=== PATIENT | male | born 1965 | race African-American/Black ===

== ENCOUNTER 2019-11-08 15:25 | Inpatient (IN) | payer OTHER ==
--- NOTE | 2019-11-08 14:51 | HP ---
[facility] Rehab Assess/Revision - Admission History Admitted to Rehab from: [facility] [address] [facility] Date of Admission to Rehab: 11/08/19 - Findings Detox History & Physical reviewed: Yes Concur with findings: Yes Comments/Additional Findings: trasnferred from detox to rehab admission as per protocol Inpatient Rehab Admission - Rehab Decision to Admit Inpatient rehab admission?: Yes - Initial Determination Are CD services needed?: Yes Free of communicable disease: Yes Not in need of hospitalization: Yes - Rehab Admission Criteria Previous failed treatment: Yes Poor recovery environment: Yes Comorbidities: Yes Lacks judgement: Yes Patient is meeting Inpatient Rehab admission criteria:: Yes
[~2019-11-08 15:25] MED LIST: ACETAMINOPHEN 325 MG TABLET (FP) PO PRN; LOPERAMIDE HCL 2 MG CAPSULE PO PRN; MAG HYDROX/AL HYDROX/SIMETH 30 ML UNIT-DOSE CUP PO PRN; MAGNESIUM CITRATE 300 ML BOTTLE PO PRN; MAGNESIUM HYDROX 2400MG/30ML ORAL SUSPENSION 30 ML CUP PO PRN; P-EPHED 60MG/TRIPROLIDI 2.5MG TABLET PO PRN; cloNIDine HCL 0.1 MG TABLET PO PRN; guaiFENesin 200 MG/10 ML 10 ML UNIT-DOSE CUPS PO PRN
--- NOTE | 2019-11-08 15:41 | PN ---
[facility] Progress Note Note: Pt is a 54 y/o male admitted to rehab from [address] [place] [address]. Saw Pt on the unit who was using cane for ambulation and has a hx of limited musculoskelatal ambulatory function. Difficulty getting up from sitting position and struggles to do so with support of his cane. Pt reports he has primary care(unable to remember his primary care doctor's name) with [facility], [address], [place]. . Pt reports he was on Methadone Maintenance till about 2 months ago when Covid-19 pandemic started and he did not go back to the clinic at [facility], [place]. . Pt reports was on Pain management at his primary care location. PMHx:Arthritis-Left and Right knees;Left Hip Chronic Pain Vascular Insufficiency:Chronic Bilateral Lower Extremity Dark discoloration of skin with varicose veins. Flatfooted Feet Edema GERD Psych Hx:Depression Alert o x 3 nad Ambulating with unsteady gait with cane neck:supple extremities:Darkened skin on both lower extremities Left > right);flatfoot; Left ankle/feet larger than right. Non-tender. New rehab pt Maintain safety cont rehab Give Lasix 20 mg po daily Analgesic balm as directed elevate legs while in bed lidocaine patch to lower bacK D/w pt the need to follow up with his primary care clinic for comprehensive medical care management after discharge.
[2019-11-08] MEDS: LIDOCAINE 5% TOPICAL PATCH TP SCH (17:30)
[2019-11-08] MEDS: MELATONIN 5 MG TABLETS PO SCH (21:23)
[2019-11-08] MEDS: IBUPROFEN 400 MG TABLET (FP) PO PRN (21:23)
[2019-11-08] MEDS: hydrOXYzine PAMOATE 50 MG CAPSULE (FP) PO PRN (21:24)
[2019-11-08] MEDS: METHOCARBAMOL 500 MG TABLET PO PRN (21:24)
[2019-11-08] MEDS: THIAMINE HCL 100 MG TABLET (FP) PO SCH (21:24)
[2019-11-08] MEDS ORDERED: MASKS NR ONE (22:11)
[2019-11-08] MEDS: LIDOCAINE PATCH REMOVAL MC SCH (22:18)
[2019-11-09] MEDS: LIDOCAINE 5% TOPICAL PATCH TP SCH (09:39)
[2019-11-09] MEDS: NICOTINE 21 MG/24 HOURS TOPICAL PATCH TD SCH (09:39)
[2019-11-09] MEDS: PRENATAL VITAMINS W/ FOLIC ACID TABLET (FP) PO SCH (09:40)
[2019-11-09] MEDS: FAMOTIDINE 20 MG TABLET PO SCH ×2 (09:40→21:41)
[2019-11-09] MEDS ORDERED: amLODIPine BESYLATE 5 MG TABLET (FP) PO SCH (10:00)
[2019-11-09] MEDS: FERROUS SO4 325 MG TABLET (FP) PO SCH ×2 (11:34→17:30)
[2019-11-09] MEDS: FUROSEMIDE 20 MG TABLET (FP) PO SCH (11:34)
[2019-11-09] MEDS ORDERED: FLU VACCINE QUAD 60 MCG/0.5 ML (MDV 19-20) IM ONE (12:00)
--- NOTE | 2019-11-09 13:07 | CONSULT ---
[facility] Psychiatric Consult - Data Date of interview: 11/09/19 Admission source: Transfer from [address] [place] [address]. Identifying data: First admission to [address] for this 54 y/o AA male who completed detoxification at [address] [place] [address] and sought continuity of care in rehabilitation for maintenance of sobriety + management of co-morbid issues of MDD and Anxiety Disorder. Patient is single, no dependents, domiciled, unemployed and supported on Public Assistance. Substance Abuse History: Discussed in this session. GWEN profile as follows : Smoking history: Current every day smoker. Have you smoked in the past 12 months: Yes. Aproximately how many cigarettes per day: 20. Cigars Per Day: 0. Hx Chewing Tobacco Use: No. Initiated information on smoking cessation: Yes. 'Breaking Loose' booklet given: 11/07/19. - Substance & Tx. History. Hx Alcohol Use: No. Hx Substance Use: Yes. Substance Use Type: Cocaine, Heroin, Marijuana, Opiates. Hx Substance Use Treatment: No (detox, rehab, past MMTP). - Substances abused. Heroin. Substance route: Inhalation. Frequency: Daily. Amount used: 1 BAG. Age of first use: 48. Date of last use: 11/06/19. Crack. Substance route: Smoking. Frequency: Daily. Amount used: 2gm. Age of first use: 25. Date of last use: 11/06/19. Marijuana/Hashish. Substance route: Smoking. Frequency: 1-2 times per week. Amount used: 1 blunt. Age of first use: 20. Date of last use: 11/06/19 Medical History: Medical profile is remarkable for obesity, GERD, bilateral hip/leg/knee pain and varicose veins in left leg (stent in place). Patient ambulates with a cane. Psychiatric History: Patient denies history of psychiatric hospitalizations. He reports monthly contact with a mental health care provider at a " clinic located on [facility] " in the [place]. Mr Jung endorses the diagnoses of MDD and Anxiety Disorder. He is reportedly prescribed a combination of hydroxyzine + bupropion (dose not recalled by patient). Questionable adherence to medications. Patient denies history of suicide attempts. Physical/Sexual Abuse/Trauma History: Patient denies. Additional Comment: Toxicoloy positive for fentanyl, cocaine, cannabinoids on admission to [facility]. Mental Status Exam - Mental Status Exam Alert and Oriented to: Time, Place, Person Cognitive Function: Good Patient Appearance: Well Groomed (obese) Mood: Anxious, Hopeful Affect: Mood Congruent, Constricted Patient Behavior: Fatigued, Appropriate, Cooperative Speech Pattern: Clear, Appropriate Voice Loudness: Normal Thought Process: Intact, Goal Oriented Thought Disorder: Not Present Hallucinations: Denies Suicidal Ideation: Denies Homicidal Ideation: Denies Insight/Judgement: Fair Sleep: Poorly, Difficulty falling asleep Appetite: Good Gait/Station: Other (walks with a cane) Psychiatric Findings - Problem List ([place] 1, 2,3) (1) Opioid use disorder Current Visit: Yes Status: Chronic (2) Cannabis dependence Current Visit: Yes Status: Chronic (3) Cocaine dependence Current Visit: Yes Status: Chronic (4) Nicotine dependence Current Visit: Yes Status: Chronic (5) Substance induced mood disorder Current Visit: Yes Status: Chronic (6) History of depression Current Visit: Yes Status: Chronic (7) Insomnia Current Visit: Yes Status: Chronic - Initial Treatment Plan Initial Treatment Plan: Psychoeducation. Sleep hygiene. Support. Motivational counseling. NA meetings (in accordance with current Covid-19 guidelines : social distancing, hand washing, face mask). Recreational therapy. Patient requests to be back on bupropion and he agrees to a trial of trazodone for insomnia. Side effects/benefits of both drugs are discussed with the patient. Informed consent (verbal) granted to . Intervention : wellbutrin XL 150 mg po daily + trazodone 50 mg po hs. Observation.
--- NOTE | 2019-11-09 13:51 | PN ---
S Progress Note Note: Pt c/o "foot pain and black spots" on his lower extremities. Request for bed change. Vital Signs - 24 hr 11/08/19 11/09/19 11/09/19 20:44 03:30 06:55 Temperature 98.1 F Pulse Rate 56 L Respiratory 18 18 Rate Blood Pressure 144/92 O2 Sat by Pulse 96 96 Oximetry (%) 11/09/19 11/09/19 09:38 10:35 Temperature 98.0 F 98.0 F Pulse Rate 58 L 60 Respiratory 18 18 Rate Blood Pressure 151/91 136/80 O2 Sat by Pulse Oximetry (%) Alert o x 3 nad oob ambulating with cane,unsteady gait. LE:Extensive areas of Dark skin discoloration on both LE-mid-calf areas to feet. Some varicose veins. Both feet-flatfooted. Left foot/ankle slight>right. Non-pitting edema. lasix 20 mg po daily elevate both legs while in bed Change current bed to hospital bed to enable ease of movement. psych consult today.
[2019-11-09] MEDS: MELATONIN 5 MG TABLETS PO SCH (21:37)
[2019-11-09] MEDS: IBUPROFEN 400 MG TABLET (FP) PO PRN (21:40)
[2019-11-09] MEDS: METHYL SALICYLATE/MENTHOL OINT 30 GM TUBE TP SCH (21:40)
[2019-11-09] MEDS: METHOCARBAMOL 500 MG TABLET PO PRN (21:41)
[2019-11-09] MEDS: THIAMINE HCL 100 MG TABLET (FP) PO SCH (21:41)
[2019-11-09] MEDS: hydrOXYzine PAMOATE 50 MG CAPSULE (FP) PO PRN (21:41)
[2019-11-09] MEDS: DOCUSATE SODIUM 100 MG CAPSULE (FP) PO SCH (21:43)
[2019-11-09] MEDS: LIDOCAINE PATCH REMOVAL MC SCH (21:43)
[2019-11-09] MEDS: traZODone HCL 50 MG TABLET (FP) PO SCH (21:45)
[2019-11-10] MEDS: FERROUS SO4 325 MG TABLET (FP) PO SCH ×3 (08:31→17:53)
[2019-11-10] MEDS: NICOTINE 21 MG/24 HOURS TOPICAL PATCH TD SCH (10:06)
[2019-11-10] MEDS: LIDOCAINE 5% TOPICAL PATCH TP SCH (10:07)
[2019-11-10] MEDS: PRENATAL VITAMINS W/ FOLIC ACID TABLET (FP) PO SCH (10:08)
[2019-11-10] MEDS: FUROSEMIDE 20 MG TABLET (FP) PO SCH (10:08)
[2019-11-10] MEDS: FAMOTIDINE 20 MG TABLET PO SCH ×2 (10:09→21:28)
[2019-11-10] MEDS: METHOCARBAMOL 500 MG TABLET PO PRN (10:09)
[2019-11-10] MEDS: DOCUSATE SODIUM 100 MG CAPSULE (FP) PO SCH (21:27)
[2019-11-10] MEDS: MELATONIN 5 MG TABLETS PO SCH (21:28)
[2019-11-10] MEDS: traZODone HCL 50 MG TABLET (FP) PO SCH (21:28)
[2019-11-10] MEDS: METHYL SALICYLATE/MENTHOL OINT 30 GM TUBE TP SCH (21:28)
[2019-11-10] MEDS: THIAMINE HCL 100 MG TABLET (FP) PO SCH (21:28)
[2019-11-10] MEDS: LIDOCAINE PATCH REMOVAL MC SCH (21:30)
[2019-11-11] MEDS: FERROUS SO4 325 MG TABLET (FP) PO SCH ×3 (08:46→16:44)
[2019-11-11] MEDS: IBUPROFEN 400 MG TABLET (FP) PO PRN (08:47)
[2019-11-11] MEDS: METHOCARBAMOL 500 MG TABLET PO PRN (08:47)
[2019-11-11] MEDS: LIDOCAINE 5% TOPICAL PATCH TP SCH (10:10)
[2019-11-11] MEDS: NICOTINE 21 MG/24 HOURS TOPICAL PATCH TD SCH (10:10)
[2019-11-11] MEDS: FUROSEMIDE 20 MG TABLET (FP) PO SCH (10:10)
[2019-11-11] MEDS: PRENATAL VITAMINS W/ FOLIC ACID TABLET (FP) PO SCH (10:10)
[2019-11-11] MEDS: FAMOTIDINE 20 MG TABLET PO SCH ×2 (10:11→21:38)
[2019-11-11] MEDS: METHYL SALICYLATE/MENTHOL OINT 30 GM TUBE TP SCH (21:37)
[2019-11-11] MEDS: traZODone HCL 50 MG TABLET (FP) PO SCH (21:38)
[2019-11-11] MEDS: DOCUSATE SODIUM 100 MG CAPSULE (FP) PO SCH (21:38)
[2019-11-11] MEDS: LIDOCAINE PATCH REMOVAL MC SCH (21:38)
[2019-11-11] MEDS: MELATONIN 5 MG TABLETS PO SCH (21:38)
[2019-11-11] MEDS: THIAMINE HCL 100 MG TABLET (FP) PO SCH (21:38)
[2019-11-12] MEDS: FERROUS SO4 325 MG TABLET (FP) PO SCH ×3 (07:55→17:55)
[2019-11-12] MEDS: FAMOTIDINE 20 MG TABLET PO SCH ×2 (10:03→21:42)
[2019-11-12] MEDS: PRENATAL VITAMINS W/ FOLIC ACID TABLET (FP) PO SCH (10:03)
[2019-11-12] MEDS: LIDOCAINE 5% TOPICAL PATCH TP SCH (10:04)
[2019-11-12] MEDS: NICOTINE 21 MG/24 HOURS TOPICAL PATCH TD SCH (10:04)
[2019-11-12] MEDS: FUROSEMIDE 20 MG TABLET (FP) PO SCH (10:04)
--- NOTE | 2019-11-12 14:28 | PN ---
S Progress Note Note: Re-evaluated pt this morning re:leg pain/feet swelling and Pt reports he feels much better today. Vital Signs - 24 hr 11/11/19 11/11/19 11/12/19 14:38 19:22 00:30 Temperature 97.5 F L Pulse Rate 72 Respiratory 18 18 Rate Blood Pressure 127/91 O2 Sat by Pulse 98 97 Oximetry (%) 11/12/19 11/12/19 11/12/19 03:30 07:05 10:00 Temperature 97.8 F Pulse Rate 61 74 Respiratory 18 18 Rate Blood Pressure 153/85 148/88 O2 Sat by Pulse 95 Oximetry (%) Alert o x 3 nad oob ambulating with steady gait Lower extremities:decreased swelling non-pitting -compared to 3 days ago. Left outer sole with old healing blister;dry, no drainage. A:Hx Vascular Insufficiency P:Cont Lasix as directed. Bacitracin ointment apply to affected area on left out foot.
[2019-11-12] MEDS: METHYL SALICYLATE/MENTHOL OINT 30 GM TUBE TP SCH (21:41)
[2019-11-12] MEDS: hydrOXYzine PAMOATE 50 MG CAPSULE (FP) PO PRN (21:41)
[2019-11-12] MEDS: DOCUSATE SODIUM 100 MG CAPSULE (FP) PO SCH (21:41)
[2019-11-12] MEDS: METHOCARBAMOL 500 MG TABLET PO PRN (21:42)
[2019-11-12] MEDS: traZODone HCL 50 MG TABLET (FP) PO SCH (21:42)
[2019-11-12] MEDS: LIDOCAINE PATCH REMOVAL MC SCH (21:42)
[2019-11-12] MEDS: MELATONIN 5 MG TABLETS PO SCH (21:42)
[2019-11-12] MEDS: THIAMINE HCL 100 MG TABLET (FP) PO SCH (21:42)
[2019-11-13] MEDS: FERROUS SO4 325 MG TABLET (FP) PO SCH ×3 (08:50→17:53)
[2019-11-13] MEDS: FAMOTIDINE 20 MG TABLET PO SCH ×2 (10:34→21:30)
[2019-11-13] MEDS: PRENATAL VITAMINS W/ FOLIC ACID TABLET (FP) PO SCH (10:34)
[2019-11-13] MEDS: FUROSEMIDE 20 MG TABLET (FP) PO SCH (10:34)
[2019-11-13] MEDS: LIDOCAINE 5% TOPICAL PATCH TP SCH (10:35)
[2019-11-13] MEDS: NICOTINE 21 MG/24 HOURS TOPICAL PATCH TD SCH (10:35)
[2019-11-13] MEDS: NICOTINE POLACRILEX 2 MG GUM BUC PRN (13:49)
[2019-11-13] MEDS: METHYL SALICYLATE/MENTHOL OINT 30 GM TUBE TP SCH (21:29)
[2019-11-13] MEDS: THIAMINE HCL 100 MG TABLET (FP) PO SCH (21:30)
[2019-11-13] MEDS: DOCUSATE SODIUM 100 MG CAPSULE (FP) PO SCH (21:30)
[2019-11-13] MEDS: MELATONIN 5 MG TABLETS PO SCH (21:30)
[2019-11-13] MEDS: hydrOXYzine PAMOATE 50 MG CAPSULE (FP) PO PRN (21:30)
[2019-11-13] MEDS: traZODone HCL 50 MG TABLET (FP) PO SCH (21:30)
[2019-11-13] MEDS: METHOCARBAMOL 500 MG TABLET PO PRN (21:30)
[2019-11-13] MEDS: LIDOCAINE PATCH REMOVAL MC SCH (21:31)
[2019-11-14] MEDS: FAMOTIDINE 20 MG TABLET PO SCH ×2 (09:24→21:31)
[2019-11-14] MEDS: NICOTINE 21 MG/24 HOURS TOPICAL PATCH TD SCH (09:25)
[2019-11-14] MEDS: BACITRACIN 0.9 GM PACKET TP SCH ×2 (09:25→21:30)
[2019-11-14] MEDS: FUROSEMIDE 20 MG TABLET (FP) PO SCH (09:25)
[2019-11-14] MEDS: FERROUS SO4 325 MG TABLET (FP) PO SCH ×3 (09:25→17:07)
[2019-11-14] MEDS: LIDOCAINE 5% TOPICAL PATCH TP SCH (09:25)
[2019-11-14] MEDS: PRENATAL VITAMINS W/ FOLIC ACID TABLET (FP) PO SCH (09:26)
--- NOTE | 2019-11-14 14:20 | PN ---
S Progress Note Note: Patient reports sleeping poorly despite taking Trazadone 50 mg/hs. Will increase Trazadone dosage to 100 mg/hs
[2019-11-14] MEDS: METHYL SALICYLATE/MENTHOL OINT 30 GM TUBE TP SCH (21:30)
[2019-11-14] MEDS: DOCUSATE SODIUM 100 MG CAPSULE (FP) PO SCH (21:31)
[2019-11-14] MEDS: hydrOXYzine PAMOATE 50 MG CAPSULE (FP) PO PRN (21:31)
[2019-11-14] MEDS: METHOCARBAMOL 500 MG TABLET PO PRN (21:31)
[2019-11-14] MEDS: MELATONIN 5 MG TABLETS PO SCH (21:31)
[2019-11-14] MEDS: THIAMINE HCL 100 MG TABLET (FP) PO SCH (21:32)
[2019-11-14] MEDS: LIDOCAINE PATCH REMOVAL MC SCH (21:32)
[2019-11-14] MEDS: traZODone HCL 100 MG TABLET (FP) PO SCH (21:34)
[2019-11-15] MEDS: NICOTINE POLACRILEX 2 MG GUM BUC PRN ×4 (06:34→21:20)
[2019-11-15] MEDS: FERROUS SO4 325 MG TABLET (FP) PO SCH ×3 (08:42→17:21)
[2019-11-15] MEDS: BACITRACIN 0.9 GM PACKET TP SCH ×2 (10:37→21:18)
[2019-11-15] MEDS: METHOCARBAMOL 500 MG TABLET PO PRN (10:37)
[2019-11-15] MEDS: LIDOCAINE 5% TOPICAL PATCH TP SCH (10:37)
[2019-11-15] MEDS: FAMOTIDINE 20 MG TABLET PO SCH ×2 (10:37→21:19)
[2019-11-15] MEDS: PRENATAL VITAMINS W/ FOLIC ACID TABLET (FP) PO SCH (10:37)
[2019-11-15] MEDS: NICOTINE 21 MG/24 HOURS TOPICAL PATCH TD SCH (10:37)
[2019-11-15] MEDS: DOCUSATE SODIUM 100 MG CAPSULE (FP) PO SCH (21:18)
[2019-11-15] MEDS: MELATONIN 5 MG TABLETS PO SCH (21:19)
[2019-11-15] MEDS: METHYL SALICYLATE/MENTHOL OINT 30 GM TUBE TP SCH (21:19)
[2019-11-15] MEDS: traZODone HCL 100 MG TABLET (FP) PO SCH (21:19)
[2019-11-15] MEDS: LIDOCAINE PATCH REMOVAL MC SCH (21:19)
[2019-11-15] MEDS: THIAMINE HCL 100 MG TABLET (FP) PO SCH (21:19)
[2019-11-16] MEDS: FERROUS SO4 325 MG TABLET (FP) PO SCH ×3 (08:34→17:42)
[2019-11-16] MEDS: NICOTINE POLACRILEX 2 MG GUM BUC PRN ×2 (08:35→10:52)
[2019-11-16] MEDS: NICOTINE 21 MG/24 HOURS TOPICAL PATCH TD SCH (10:48)
[2019-11-16] MEDS: LIDOCAINE 5% TOPICAL PATCH TP SCH (10:48)
[2019-11-16] MEDS: PRENATAL VITAMINS W/ FOLIC ACID TABLET (FP) PO SCH (10:48)
[2019-11-16] MEDS: FAMOTIDINE 20 MG TABLET PO SCH ×2 (10:48→21:30)
[2019-11-16] MEDS: BACITRACIN 0.9 GM PACKET TP SCH ×2 (10:48→21:30)
[2019-11-16] MEDS: IBUPROFEN 400 MG TABLET (FP) PO PRN (10:50)
[2019-11-16] MEDS: THIAMINE HCL 100 MG TABLET (FP) PO SCH (21:30)
[2019-11-16] MEDS: MELATONIN 5 MG TABLETS PO SCH (21:30)
[2019-11-16] MEDS: DOCUSATE SODIUM 100 MG CAPSULE (FP) PO SCH (21:30)
[2019-11-16] MEDS: traZODone HCL 100 MG TABLET (FP) PO SCH (21:30)
[2019-11-16] MEDS: METHOCARBAMOL 500 MG TABLET PO PRN (21:30)
[2019-11-16] MEDS: METHYL SALICYLATE/MENTHOL OINT 30 GM TUBE TP SCH (21:30)
[2019-11-16] MEDS: hydrOXYzine PAMOATE 50 MG CAPSULE (FP) PO PRN (21:30)
[2019-11-16] MEDS: LIDOCAINE PATCH REMOVAL MC SCH (21:31)
[2019-11-17] MEDS: FERROUS SO4 325 MG TABLET (FP) PO SCH ×3 (07:56→17:51)
[2019-11-17] MEDS: BACITRACIN 0.9 GM PACKET TP SCH ×2 (09:37→21:53)
[2019-11-17] MEDS: FAMOTIDINE 20 MG TABLET PO SCH ×2 (09:37→21:57)
[2019-11-17] MEDS: NICOTINE 21 MG/24 HOURS TOPICAL PATCH TD SCH (09:38)
[2019-11-17] MEDS: LIDOCAINE 5% TOPICAL PATCH TP SCH (09:38)
[2019-11-17] MEDS: PRENATAL VITAMINS W/ FOLIC ACID TABLET (FP) PO SCH (09:38)
[2019-11-17] MEDS: METHOCARBAMOL 500 MG TABLET PO PRN ×2 (09:39→21:54)
[2019-11-17] MEDS: MELATONIN 5 MG TABLETS PO SCH (21:53)
[2019-11-17] MEDS: hydrOXYzine PAMOATE 50 MG CAPSULE (FP) PO PRN (21:54)
[2019-11-17] MEDS: traZODone HCL 100 MG TABLET (FP) PO SCH (21:54)
[2019-11-17] MEDS: DOCUSATE SODIUM 100 MG CAPSULE (FP) PO SCH (21:54)
[2019-11-17] MEDS: THIAMINE HCL 100 MG TABLET (FP) PO SCH (21:54)
[2019-11-17] MEDS: METHYL SALICYLATE/MENTHOL OINT 30 GM TUBE TP SCH (21:54)
[2019-11-17] MEDS: LIDOCAINE PATCH REMOVAL MC SCH (21:55)
[2019-11-18] MEDS: FERROUS SO4 325 MG TABLET (FP) PO SCH ×3 (08:09→17:29)
[2019-11-18] MEDS: PRENATAL VITAMINS W/ FOLIC ACID TABLET (FP) PO SCH (09:54)
[2019-11-18] MEDS: BACITRACIN 0.9 GM PACKET TP SCH ×2 (09:54→21:57)
[2019-11-18] MEDS: FAMOTIDINE 20 MG TABLET PO SCH ×2 (09:54→22:26)
[2019-11-18] MEDS: LIDOCAINE 5% TOPICAL PATCH TP SCH (09:55)
[2019-11-18] MEDS: NICOTINE 21 MG/24 HOURS TOPICAL PATCH TD SCH (09:55)
[2019-11-18] MEDS: METHOCARBAMOL 500 MG TABLET PO PRN ×2 (09:56→21:58)
[2019-11-18] MEDS: IBUPROFEN 400 MG TABLET (FP) PO PRN ×2 (09:57→21:58)
[2019-11-18] MEDS: hydrOXYzine PAMOATE 50 MG CAPSULE (FP) PO PRN (21:57)
[2019-11-18] MEDS: traZODone HCL 100 MG TABLET (FP) PO SCH (21:57)
[2019-11-18] MEDS: THIAMINE HCL 100 MG TABLET (FP) PO SCH (21:57)
[2019-11-18] MEDS: MELATONIN 5 MG TABLETS PO SCH (21:57)
[2019-11-18] MEDS: METHYL SALICYLATE/MENTHOL OINT 30 GM TUBE TP SCH (21:57)
[2019-11-18] MEDS: LIDOCAINE PATCH REMOVAL MC SCH (21:59)
[2019-11-18] MEDS: DOCUSATE SODIUM 100 MG CAPSULE (FP) PO SCH (22:00)
[2019-11-19] MEDS: FERROUS SO4 325 MG TABLET (FP) PO SCH ×3 (09:42→17:20)
[2019-11-19] MEDS: BACITRACIN 0.9 GM PACKET TP SCH ×2 (09:43→21:51)
[2019-11-19] MEDS: NICOTINE 21 MG/24 HOURS TOPICAL PATCH TD SCH (09:44)
[2019-11-19] MEDS: LIDOCAINE 5% TOPICAL PATCH TP SCH (09:44)
[2019-11-19] MEDS: FAMOTIDINE 20 MG TABLET PO SCH ×2 (09:45→21:51)
[2019-11-19] MEDS: PRENATAL VITAMINS W/ FOLIC ACID TABLET (FP) PO SCH (09:45)
[2019-11-19] MEDS: METHOCARBAMOL 500 MG TABLET PO PRN (21:51)
[2019-11-19] MEDS: hydrOXYzine PAMOATE 50 MG CAPSULE (FP) PO PRN (21:51)
[2019-11-19] MEDS: traZODone HCL 100 MG TABLET (FP) PO SCH (21:51)
[2019-11-19] MEDS: METHYL SALICYLATE/MENTHOL OINT 30 GM TUBE TP SCH (21:51)
[2019-11-19] MEDS: DOCUSATE SODIUM 100 MG CAPSULE (FP) PO SCH (21:51)
[2019-11-19] MEDS: THIAMINE HCL 100 MG TABLET (FP) PO SCH (21:51)
[2019-11-19] MEDS: IBUPROFEN 400 MG TABLET (FP) PO PRN (21:52)
[2019-11-19] MEDS: MELATONIN 5 MG TABLETS PO SCH (21:52)
[2019-11-19] MEDS: LIDOCAINE PATCH REMOVAL MC SCH (21:53)
[2019-11-19] MEDS: NICOTINE POLACRILEX 2 MG GUM BUC PRN (21:54)
[2019-11-20] MEDS: FAMOTIDINE 20 MG TABLET PO SCH ×2 (09:13→21:18)
[2019-11-20] MEDS: PRENATAL VITAMINS W/ FOLIC ACID TABLET (FP) PO SCH (09:13)
[2019-11-20] MEDS: FERROUS SO4 325 MG TABLET (FP) PO SCH ×3 (09:13→17:20)
[2019-11-20] MEDS: LIDOCAINE 5% TOPICAL PATCH TP SCH (09:14)
[2019-11-20] MEDS: NICOTINE 21 MG/24 HOURS TOPICAL PATCH TD SCH (09:14)
[2019-11-20] MEDS: IBUPROFEN 400 MG TABLET (FP) PO PRN ×2 (09:15→22:37)
[2019-11-20] MEDS: METHOCARBAMOL 500 MG TABLET PO PRN (09:15)
[2019-11-20] MEDS: hydrOXYzine PAMOATE 50 MG CAPSULE (FP) PO PRN (09:17)
[2019-11-20] MEDS: BACITRACIN 0.9 GM PACKET TP SCH ×2 (09:20→21:18)
[2019-11-20] MEDS: NICOTINE POLACRILEX 2 MG GUM BUC PRN (17:21)
[2019-11-20] MEDS: traZODone HCL 100 MG TABLET (FP) PO SCH (21:18)
[2019-11-20] MEDS: DOCUSATE SODIUM 100 MG CAPSULE (FP) PO SCH (21:18)
[2019-11-20] MEDS: THIAMINE HCL 100 MG TABLET (FP) PO SCH (21:18)
[2019-11-20] MEDS: MELATONIN 5 MG TABLETS PO SCH (21:18)
[2019-11-20] MEDS: METHYL SALICYLATE/MENTHOL OINT 30 GM TUBE TP SCH (21:19)
[2019-11-20] MEDS: LIDOCAINE PATCH REMOVAL MC SCH (21:19)
[2019-11-21] MEDS: FERROUS SO4 325 MG TABLET (FP) PO SCH ×3 (08:39→17:03)
[2019-11-21] MEDS: NICOTINE 21 MG/24 HOURS TOPICAL PATCH TD SCH (10:21)
[2019-11-21] MEDS: LIDOCAINE 5% TOPICAL PATCH TP SCH (10:21)
[2019-11-21] MEDS: BACITRACIN 0.9 GM PACKET TP SCH ×2 (10:22→21:17)
[2019-11-21] MEDS: PRENATAL VITAMINS W/ FOLIC ACID TABLET (FP) PO SCH (10:22)
[2019-11-21] MEDS: FAMOTIDINE 20 MG TABLET PO SCH ×2 (10:22→21:15)
[2019-11-21] MEDS: METHOCARBAMOL 500 MG TABLET PO PRN ×2 (10:23→21:16)
[2019-11-21] MEDS: IBUPROFEN 400 MG TABLET (FP) PO PRN ×2 (10:23→21:15)
--- NOTE | 2019-11-21 11:48 | PN ---
[facility] Progress Note Note: Patient is scheduled for discharge tomorrow. Scripts for 30 days supply of medications(Wellbutrin XL 150 mg/day, Trazadone 100 mg.hs) will be electronically transmitted to [facility], [address] [place] [id number]
--- NOTE | 2019-11-21 12:34 | DS ---
[facility] Rehab Discharge Summary - [facility] Rehab Discharge Summary Admission Date: 11/08/19 Discharge Date: 11/22/19 - History Present History: Alcohol dependence, Cannabis dependence, Cocaine dependence, Opioid dependence Pertinent Past History: Anemia GERD HTN(no med) Flat Foot Ulcer Left Foot Edema both legs Vascular Insufficiency Hx Depression - Discharge Physical Exam Vital Signs: Vital Signs Temperature 97.8 F 11/21/19 06:41 Pulse Rate 75 11/21/19 06:41 Respiratory Rate 18 11/21/19 06:41 Blood Pressure 145/89 11/21/19 06:41 O2 Sat by Pulse Oximetry (%) 96 11/21/19 06:41 Alert o x 3, well groomed nad oob ambulating with steady gait with cane and not sluggish as on admission cardiac:s1 s2, rrr lungs:cta,tamia. Abdomen:soft,+bs, nontender,no distension Extremities:slight swelling resolving; small left foot ulcer on inner aspect of sole is clean with granulation tissue, no drainage.Scab, sloughed off. Skin color/tugor much improved. Pertinent Admission Physical Exam Findings: Ulcer left foot Edema of lower extremities Left > right with dark discolorations Cane for ambulation - Treatment Discharge Condition: Discharge condition good Hospital Course: Pt is a 54 y/o male with a hx of GWEN-alcohol admitted to rehab from [address] Pt participated in individual sessions and group therapy. Pt has been referred to CD aftercare follow up with [facility] program. Pt reports he has primary care(unable to remember his primary care doctor's name) with [facility], [address] [place], [place]. . Pt reports he was on Methadone Maintenance till about 2 months ago when Covid-19 pandemic started and he did not go back to the clinic at [facility], [place]. . Pt declined to get back on MMTP or any opioid maintenance treatment when spoken to at this time. Pt reports he was on Pain management at his primary care location. will follow up after discharge. CD aftercare referral accepted Rehabilitated safely and responded well. - Medication Discharge Medications: Ambulatory Orders Bupropion HCl [Wellbutrin Xl -] 100 mg PO BID 11/07/19 Bupropion HCl [Wellbutrin Xl -] 300 mg PO DAILY 11/07/19 Ibuprofen [Motrin -] 800 mg PO TID 11/07/19 hydrOXYzine PAMOATE [Vistaril -] 50 mg PO HS 11/07/19 Bupropion HCl [Wellbutrin Xl -] 150 mg PO DAILY #30 tab.sr.24h 11/21/19 Ferrous Sulfate [Feosol] 325 mg PO BID #30 tablet 11/21/19 Omeprazole 20 mg PO DAILY #14 cap.sr 11/21/19 traZODone HCL [Desyrel -] 100 mg PO HS #30 tablet 11/21/19 - Medication-Assisted Treatment (MAT) Medication-Assisted Treatment (MAT): No - Discharge Instructions Diet, activity, other medical instructions: Diet:CLARENCE Activity: oob ad bonnie with cane Other medical instructions:f/u with CD aftercare to [facility] as scheduled follow up with your PCP at [facility] as scheduled on 11/23/19 at 12:15 p.m. - Diagnosis (1) Alcohol dependence Status: Chronic (2) Cannabis dependence Status: Chronic (3) Cocaine dependence Status: Chronic (4) Flatfoot Status: Chronic Qualifiers: Laterality: bilateral Qualified Code(s): M21.41 - Flat foot [pes planus] (acquired), right foot; M21.42 - Flat foot [pes planus] (acquired), left foot (5) Impaired circulation of lower extremity Status: Chronic (6) Nicotine dependence Status: Chronic Qualifiers: Nicotine product type: cigarettes Substance use status: uncomplicated Qualified Code(s): F17.210 - Nicotine dependence, cigarettes, uncomplicated (7) Edema Status: Chronic Qualifiers: Edema type: unspecified Qualified Code(s): R60.9 - Edema, unspecified (8) Ulcer of left foot Status: Chronic Qualifiers: Non-pressure ulcer stage: limited to breakdown of skin Qualified Code(s): L97.521 - Non-pressure chronic ulcer of other part of left foot limited to breakdown of skin (9) Hypertension Status: Suspected Qualifiers: Hypertension type: unspecified Qualified Code(s): I10 - Essential (primary) hypertension (10) Use of cane as ambulatory aid Status: Chronic - Follow-up Referral Minutes to complete discharge: 35 - AMA Did Patient Leave Against Medical Advice: No
[2019-11-21] MEDS: METHYL SALICYLATE/MENTHOL OINT 30 GM TUBE TP SCH (21:15)
[2019-11-21] MEDS: THIAMINE HCL 100 MG TABLET (FP) PO SCH (21:15)
[2019-11-21] MEDS: DOCUSATE SODIUM 100 MG CAPSULE (FP) PO SCH (21:15)
[2019-11-21] MEDS: hydrOXYzine PAMOATE 50 MG CAPSULE (FP) PO PRN (21:16)
[2019-11-21] MEDS: MELATONIN 5 MG TABLETS PO SCH (21:16)
[2019-11-21] MEDS: traZODone HCL 100 MG TABLET (FP) PO SCH (21:16)
[2019-11-21] MEDS: LIDOCAINE PATCH REMOVAL MC SCH (21:17)
[2019-11-21] MEDS: NICOTINE POLACRILEX 2 MG GUM BUC PRN (21:17)
[2019-11-22 06:58] VITALS: TEMP 97.7
[2019-11-22] MEDS: FERROUS SO4 325 MG TABLET (FP) PO SCH (08:10)
[2019-11-22 09:38] VITALS: BP 129/79; PULSE 70
[2019-11-22] MEDS: FAMOTIDINE 20 MG TABLET PO SCH (09:38)
[2019-11-22] MEDS: BACITRACIN 0.9 GM PACKET TP SCH (09:38)
[2019-11-22] MEDS: PRENATAL VITAMINS W/ FOLIC ACID TABLET (FP) PO SCH (09:38)
[2019-11-22] MEDS: NICOTINE 21 MG/24 HOURS TOPICAL PATCH TD SCH (09:40)
[2019-11-22] MEDS: LIDOCAINE 5% TOPICAL PATCH TP SCH (09:40)
[2019-11-22] MEDS: IBUPROFEN 400 MG TABLET (FP) PO PRN (09:43)
[2019-11-22] MEDS: NICOTINE POLACRILEX 2 MG GUM BUC PRN (09:44)
--- NOTE | 2019-11-22 12:16 | PN ---
S Progress Note Note: Pt is a 54 y/o male with a hx of GWEN admitted to rehab and schedule to discharge today after completion of treatment. Pt has been referred to CD aftercare at [facility] program for follow up care. Vital Signs - 24 hr 11/21/19 11/21/19 11/21/19 14:22 15:25 20:45 Temperature Pulse Rate 67 Respiratory Rate Blood Pressure 150/97 O2 Sat by Pulse 99 98 Oximetry (%) 11/22/19 11/22/19 11/22/19 00:30 03:30 06:56 Temperature Pulse Rate Respiratory 18 18 Rate Blood Pressure O2 Sat by Pulse 98 Oximetry (%) 11/22/19 11/22/19 06:57 09:37 Temperature 97.7 F Pulse Rate 78 70 Respiratory 18 18 Rate Blood Pressure 140/94 129/79 O2 Sat by Pulse Oximetry (%) VS Stable O2 sat 98% room air Alert o x 3,well groomed,denies s/h/i nad oob ambulating with steady gait with cane Active ROM to ext. A:Medically stable P:D/c pt today Follow up with CD aftercare as recommended scheduled follow up with primary care at [facility] as scheduled on 11/23/19 @ 12:15 P.M for medical management.
== END 2019-11-22 10:05 | disposition home or self-care (01) | DRG 772 ==
LOC: YASAS 15:25 → Y5N 15:27
PROVIDERS: ADMIT Allergy & Immunology; ATTEND Allergy & Immunology
PROC: HZ42ZZZ Group Counseling for Substance Abuse Treatment, Cognitive-Behavioral (ICD-10-PCS; principal; 2019-11-08)
DX: F10.20 Alcohol dependence, uncomplicated (principal); F11.20 Opioid dependence, uncomplicated; F14.20 Cocaine dependence, uncomplicated; F12.20 Cannabis dependence, uncomplicated; F17.210 Nicotine dependence, cigarettes, uncomplicated; F19.24 Other psychoactive substance dependence with psychoactive substance-induced mood disorder; F41.9 Anxiety disorder, unspecified; F32.9 Major depressive disorder, single episode, unspecified; L97.529 Non-pressure chronic ulcer of other part of left foot with unspecified severity; D64.9 Anemia, unspecified; I10 Essential (primary) hypertension; G47.00 Insomnia, unspecified; K21.9 Gastro-esophageal reflux disease without esophagitis; R60.0 Localized edema; M21.42 Flat foot [pes planus] (acquired), left foot; M21.41 Flat foot [pes planus] (acquired), right foot; M17.0 Bilateral primary osteoarthritis of knee; M16.12 Unilateral primary osteoarthritis, left hip; I73.89 Other specified peripheral vascular diseases; I83.92 Asymptomatic varicose veins of left lower extremity; E66.9 Obesity, unspecified; Z68.31 Body mass index [BMI] 31.0-31.9, adult; Z95.828 Presence of other vascular implants and grafts; Z99.89 Dependence on other enabling machines and devices
CPT/HCPCS: G0008; J0735; Q2036